=== PATIENT | female | born 1995 | race Caucasian/White ===

== ENCOUNTER 2016-10-24 20:41 | Emergency (ER) | payer BC, MEDICAID ==
[~2016-10-24] VITALS: Ht 167.6 cm; Wt 60.8 kg
--- OUTSIDE RECORDS SUMMARY | 2016-10-24 20:48 | XMS REPORT ---
Author Author [facility] Organization [facility] Address [address] [place], [place] [id number] Phone [phone] Summary purpose TRANSITION OF CARE AUTO GENERATION Chief Complaint and Reason for Visit No authorized Reason for Visit (Admitting Diagnosis) is available for this visit. Problem list No authorized problems tracked for continuity of care are available for this visit. Encounters No authorized problems tracked for encounter diagnoses are available for this visit. Medications No medications recorded for this patient visit Allergies, adverse reactions, alerts No allergy information is available for this patient. Immunizations No immunizations recorded for this patient visit Relevant diagnostic tests and/or laboratory data No authorized results are available for this patient visit History of procedures No procedures recorded for this patient visit. Functional status No functional or cognitive status observations are available for this visit. Vital signs No authorized vital signs are available for this visit. Social history No Social History or smoking status observations were recorded for this visit. ( Unknown if ever smoked.) Treatment Plan No treatment plan text is available for this visit. Hospital discharge instructions No discharge instruction text is available for this visit.
[2016-10-24] MEDS ORDERED: ONDANSETRON 4 MG/2 ML (SDV) Z0FRAN IVP ONE ×2 (21:00→21:15)
--- NOTE | 2016-10-24 21:04 | ED GI ---
General Chief Complaint: Abdominal/GI Problems Stated Complaint: NAUSEA,VOMITING Source of Information: Patient Exam Limitations: No Limitations History of Present Illness Time Seen By Provider: 21:02 Initial Comments To ER with nausea vomiting diarrhea and right-sided abdominal pain. This began this morning. She denies fevers. She has vomited 4 times since this happened and had diarrhea 6 times. Diarrhea is watery and without blood or mucus. No history of this until about a week ago when she had this for one week and then it stopped spontaneously for a few days before recurring again today. Boyfriend is at the bedside and he has no similar symptoms and states that they' ve been eating the same types of foods. Timing/Duration: 12-24 Hours Severity/Quality: Moderate Location: RLQ, Periumbilical Radiation: No Radiation Activities at Onset: None Associated Symptoms: Nausea/Vomiting Allergies and Home Medications Allergies Coded Allergies: No Known Drug Allergies (Unverified , 10/24/16) Review of Systems Constitutional: see HPI EENTM: No Symptoms Reported Respiratory: No Symptoms Reported Cardiovascular: No Symptoms Reported Gastrointestinal: See HPI Abdominal Pain Diarrhea Nausea Vomiting Genitourinary: No Symptoms Reported Musculoskeletal: no symptoms reported Skin: no symptoms reported Psychiatric/Neurological: No Symptoms Reported Endocrine: No Symptoms Reported Hematologic/Lymphatic: No Symptoms Reported Past Wgaxitg-Decfdf-Zsgaru Hx Patient Social History Alcohol Use: Rarely Uses Recreational Drug Use: No Smoking Status: Never a Smoker 2nd Hand Smoke Exposure: No Recent Foreign Travel: No Contact w/Someone Who Travel: No Recent Hopitalizations: No Seasonal Allergies Seasonal Allergies: No Surgeries HX Surgeries: No Respiratory Hx Respiratory Disorders: No Cardiovascular Hx Cardiac Disorders: No Neurological Hx Neurological Disorders: No Reproductive System Hx Reproductive Disorders: No Genitourinary Hx Genitourinary Disorders: No Gastrointestinal Hx Gastrointestinal Disorders: No Musculoskeletal Hx Musculoskeletal Disorders: No Endocrine Hx Endocrine Disorders: No HEENT HX ENT Disorders: No Cancer Hx Cancer: No Psychosocial Hx Psychiatric Problems: No Integumentary HX Skin/Integumentary Disorder: No Blood Transfusions Hx Blood Disorders: No Physical Exam Vital Signs VS - Last 72 Hours, by Label 10/24/16 20:47 Temp 96.3 Pulse 75 Resp 16 B/P 128/70 Pulse Ox 97 O2 Delivery Room Air Capillary Refill : General Appearance: WD/WN no apparent distress HEENT: PERRL/EOMI normal ENT inspection Neck: non-tender full range of motion Respiratory: normal breath sounds no respiratory distress no accessory muscle use Gastrointestinal: normal bowel sounds soft tenderness (periUmbilical and right suprapubic) Extremities: normal range of motion non-tender normal inspection Neurologic/Psychiatric: alert normal mood/affect oriented x 3 Skin: normal color warm/dry Progress/Results/Core Measures Results/Orders Lab Results Laboratory Tests Test 10/24/16 20:59 Range/Units Alanine Aminotransferase (ALT/SGPT) 21 0-55 U/L Albumin 3.9 3.2-4.5 G/DL Alkaline Phosphatase 78 40-136 U/L Anion Gap 13 5-14 MMOL/L Aspartate Amino Transf (AST/SGOT) 19 5-34 U/L BUN/Creatinine Ratio 24 Basophils # (Auto) 0.0 0.0-0.1 10^3/uL Basophils (%) (Auto) 0 0-10 % Blood Urea Nitrogen 19 H 7-18 MG/DL Calcium Level 8.7 8.5-10.1 MG/DL Carbon Dioxide Level 23 21-32 MMOL/L Chloride Level 108 H 98-107 MMOL/L Creatinine 0.78 0.60-1.30 MG/DL Eosinophils # (Auto) 0.1 0.0-0.3 10^3/uL Eosinophils (%) (Auto) 1 0-10 % Estimat Glomerular Filtration Rate > 60 Glucose Level 85 70-105 MG/DL Hematocrit 42 35-52 % Hemoglobin 14.3 11.5-16.0 G/DL Lipase 20 8-78 U/L Lymphocytes # (Auto) 0.9 L 1.0-4.0 X 10^3 Lymphocytes (%) (Auto) 16 12-44 % Mean Corpuscular Hemoglobin 29 25-34 PG Mean Corpuscular Hemoglobin Concent 34 32-36 G/DL Mean Corpuscular Volume 87 80-99 FL Mean Platelet Volume 10.1 7.4-10.4 FL Monocytes # (Auto) 0.5 0.0-1.0 X 10^3 Monocytes (%) (Auto) 8 0-12 % Neutrophils # (Auto) 4.4 1.8-7.8 X 10^3 Neutrophils (%) (Auto) 75 42-75 % Platelet Count 272 130-400 10^3/uL Potassium Level 3.7 3.6-5.0 MMOL/L Red Blood Count 4.90 4.35-5.85 10^6/uL Red Cell Distribution Width 12.5 10.0-14.5 % Sodium Level 144 135-145 MMOL/L Total Bilirubin 1.7 H 0.1-1.0 MG/DL Total Protein 7.1 6.4-8.2 G/DL Urine Bacteria NONE /HPF Urine Bilirubin NEGATIVE NEGATIVE Urine Casts NONE /LPF Urine Clarity SLIGHTLY CLOUDY Urine Color YELLOW Urine Crystals NONE /LPF Urine Culture Indicated NO Urine Glucose (UA) NEGATIVE NEGATIVE Urine Ketones 3+ H NEGATIVE Urine Leukocyte Esterase NEGATIVE NEGATIVE Urine Mucus MODERATE H /LPF Urine Nitrite NEGATIVE NEGATIVE Urine Protein NEGATIVE NEGATIVE Urine RBC NONE /HPF Urine RBC (Auto) NEGATIVE NEGATIVE Urine Specific [place] 1.015 L 1.016-1.022 Urine Squamous Epithelial Cells 2-5 /HPF Urine Urobilinogen NORMAL NORMAL MG/DL Urine WBC RARE /HPF Urine pH 6.5 5-9 White Blood Count 5.9 4.3-11.0 10^3/uL My Orders Orders-KYA BUCK APRN Ua Culture If Indicated (10/24/16 20:55) Cbc With Automated Diff (10/24/16 20:55) Comprehensive Metabolic Panel (10/24/16 20:55) Lipase (10/24/16 20:55) Urine Bedside (10/24/16 20:55) Saline Lock/Iv-Start (10/24/16 20:55) Ondansetron Injection (Zofran Injectio (10/24/16 21:00) Ct Abd/Pelv W (Appendicitis) (10/24/16 21:02) Lactated Ringers (Lr 1000 Ml Iv Solution (10/24/16 21:15) Ondansetron Injection (Zofran Injectio (10/24/16 21:15) Iohexol Injection (Omnipaque 350 Mg/Ml 1 (10/24/16 21:15) Ns (Ivpb) (Sodium Chloride 0.9% Ivpb Bag (10/24/16 21:15) Medications Given in ED Current Medications Medications Dose Ordered Sig/Benja Route Start Time Stop Time Status Last Admin Dose Admin Iohexol 100 ml ONCE ONCE IV 10/24/16 21:15 10/24/16 21:16 DC 10/24/16 21:29 100 ML Ondansetron HCl 8 mg ONCE ONCE IVP 10/24/16 21:15 10/24/16 21:16 DC 10/24/16 21:09 8 MG Sodium Chloride 100 ml ONCE ONCE IV 10/24/16 21:15 10/24/16 21:16 DC 10/24/16 21:29 100 ML Vital Signs/I&O Vital Sign - Last 12Hours 10/24/16 20:47 Temp 96.3 Pulse 75 Resp 16 B/P 128/70 Pulse Ox 97 O2 Delivery Room Air Departure Impression Impression: Primary Impression: Nausea vomiting and diarrhea Disposition: HOME, SELF-CARE Condition: Stable Departure-Patient Inst. Decision time for Depature: 22:05 Referrals: NO,LOCAL PHYSICIAN (PCP/Family) Primary Care Physician Patient Instructions: Nausea and Vomiting, Adult Add. Discharge Instructions: 1. Small frequent sips of clear fluids for the next 12 hours then you may slowly advance to a more normal diet 2. Return to ER for any fevers, pain or other concerns 3. Nausea medication as needed All discharge instructions reviewed with patient and/or family. Voiced understanding. Scripts Ondansetron (Zofran Odt)8 Mg Tab.rapdis8 Mg PO Q6H PRN NAUSEA/VOMITING #10 TAB Prov:KYA BUCK APRN 10/24/16 Work/School Note: Work Release Form Date Seen in the Emergency Department: Oct 24, 2016 Return to Work: Oct 26, 2016 KYA BUCK APRN Oct 24, 2016 21:04
[2016-10-24 21:10] LABS: BASOPHILS % (AUTO) 0 % (0-10); BILIRUBIN,URINE NEGATIVE (NEGATIVE); EOSINOPHILS # (AUTO) 0.1 10^3/uL (0.0-0.3); EOSINOPHILS % (AUTO) 1 % (0-10); KETONES,URINE 3+ (NEGATIVE); LEUKOCYTE ESTERASE ,URINE NEGATIVE (NEGATIVE); LYMPHOCYTES # (AUTO) 0.9 X 10^3 (1.0-4.0); LYMPHOCYTES % (AUTO) 16 % (12-44); MEAN CORPUSCULAR HEMOGLOBIN 29 PG (25-34); MEAN CORPUSCULAR HGB CONC 34 G/DL (32-36); MEAN CORPUSCULAR VOLUME 87 FL (80-99); MEAN PLATELET VOLUME 10.1 FL (7.4-10.4); MONOCYTES # (AUTO) 0.5 X 10^3 (0.0-1.0); MONOCYTES % (AUTO) 8 % (0-12); NEUTROPHILS # (AUTO) 4.4 X 10^3 (1.8-7.8); NEUTROPHILS % (AUTO) 75 % (42-75); NITRITE,URINE NEGATIVE (NEGATIVE); PH,URINE 6.5 (5-9); PLATELET COUNT 272 10^3/uL (130-400); PROTEIN,URINE NEGATIVE (NEGATIVE); RED CELL DISTRIBUTION WIDTH 12.5 % (10.0-14.5); UROBILINOGEN,URINE NORMAL (NORMAL); WHITE BLOOD COUNT 5.9 10^3/uL (4.3-11.0)
[2016-10-24] MEDS ORDERED: NS 100 ML (IVPB) BAG IV ONE (21:15)
[2016-10-24] MEDS ORDERED: IOHEXOL 350 MG/ML 100 ML (OMNIPAQUE 350) VIAL IV ONE (21:15)
[2016-10-24] MEDS ORDERED: LACTATED RINGERS 1,000 ML IV SCH (21:15)
[2016-10-24 21:25] LABS: WBC,URINE RARE /HPF
[2016-10-24 21:30] LABS: ALANINE AMINOTRANSFERASE 21 U/L (0-55); ALBUMIN 3.9 G/DL (3.2-4.5); ANION GAP 13 MMOL/L (5-14); ASPARTATE AMINO TRANSFERASE 19 U/L (5-34); BILIRUBIN,TOTAL 1.7 MG/DL (0.1-1.0); BLOOD UREA NITROGEN 19 MG/DL (7-18); BUN/CREATININE RATIO 24; CALCIUM 8.7 MG/DL (8.5-10.1); CARBON DIOXIDE 23 MMOL/L (21-32); CHLORIDE 108 MMOL/L (98-107); CREATININE SERUM 0.78 MG/DL (0.60-1.30); GFR ESTIMATED > 60; GLUCOSE 85 MG/DL (70-105); LIPASE 20 U/L (8-78); POTASSIUM 3.7 MMOL/L (3.6-5.0); SODIUM 144 MMOL/L (135-145); TOTAL PROTEIN 7.1 G/DL (6.4-8.2)
[2016-10-24] MEDS ORDERED: RX-ONDANSETRON 4 MG ODT (ZOFRAN) PPK #4 PO STA (22:06)
[2016-10-24] MEDS ORDERED: ONDA8TAB9 PO (22:06)
--- NOTE | 2016-10-24 22:24 | Diagnostic Imaging Report ---
PROCEDURE: CT abdomen and pelvis with contrast, rule out appendicitis. TECHNIQUE: Multiple contiguous axial images were obtained through the abdomen and pelvis after the administration of intravenous contrast. INDICATION: Abdominal pain. COMPARISON: None. FINDINGS: The lung bases are clear. The liver, gallbladder, pancreas, spleen, adrenals, left kidney, collecting systems and appendix are negative. Small benign cyst in the mid right kidney. Small amount of free fluid in the pelvis is likely physiologic. IUD. No free intraperitoneal air, lymphadenopathy or evidence of bowel obstruction. Osseous structures are unremarkable. IMPRESSION: 1. Small amount of free fluid in the pelvis is likely physiologic. 2. No acute CT findings in the abdomen or pelvis. Specifically, the appendix is negative. Dictated by: Dictated on workstation # [id number]
[2016-10-24 23:10] VITALS: BP 124/74
== END 2016-10-24 23:06 | disposition home or self-care (01) ==
LOC: ER 20:45
DX: R11.2 Nausea with vomiting, unspecified (principal); R19.7 Diarrhea, unspecified
CPT/HCPCS: 36415; 74177; 80053; 81000; 83690; 84703; 85025; 96361; 96374